=== PATIENT | female | born 1935 | race Caucasian/White ===

== ENCOUNTER → 2017-07-19 10:38 | Outpatient (CLI) | payer MEDICARE, BC, SELFPAY ==
--- NOTE | 2017-07-19 10:48 | MM_ITS ---
MM Dig screening mamm BI w/CAD ORDERING PHYSICIAN : Timothy Alexis PATIENT AGE: 81 years GENDER: Female COMPARISON: 06/12/2013, 05/01/2012, 04/27/2011 INDICATION: Screening no hormones. No new complaints.. Family history. Mother with breast cancer TECHNIQUE: Standard CC and MLO images were obtained. . R2 CAD reviewed. With Additional nipple profile cc & MLO view bilateral FINDINGS: Lower density minimal residual fibroglandular elements bilaterally. Moderate generalized fatty replaced fibroglandular tissue. Stable appearance bilateral. No new areas of concern No malignant appearing mass or malignant appearing microcalcification evident radiographically. . No developing density or architectural distortion benign-appearing nodules are present in the axillary regions. Asymmetric density is noted in the retroareolar areas, stable. IMPRESSION: Stable mammogram No significant change since prior studies , with no evidence of malignancy BI-RADS Category: 2 Benign Finding(s) RECOMMENDED FOLLOW-UP: 1YR - 1 YEAR FOLLOW-UP (A letter has been sent to the patient regarding results of the study.)
== END ==
PROVIDERS: PCP Family Medicine; Visit Provider Family Medicine
DX: Z12.31 Encounter for screening mammogram for malignant neoplasm of breast (principal)
CPT/HCPCS: 77067

== ENCOUNTER → 2018-06-26 15:54 | Outpatient (CLI) | payer MEDICARE, BC, SELFPAY ==
--- NOTE | 2018-06-26 15:58 | MM_ITS ---
MM Dig screening mamm BI w/CAD ORDERING PHYSICIAN : Timothy Alexis PATIENT AGE: 82 years GENDER: Female INDICATION: .: SCREENING mammogram. No new complaints. 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 November 2017 patient January 2018 Family history. Mother with breast cancer age 79 COMPARISON: June 2016, May 2015, May 2014, 2012 TECHNIQUE: Standard CC and MLO images were obtained. R2 CAD reviewed. . In addition Additional Nipple Profile cc and MLO view bilaterally included FINDINGS: . Low-density breast bilaterally with moderate diffuse fatty replacement. Minimal residual fibroglandular elements No dominant nor suspicious mass. No Suspicious calcification additionally seen today.. Benign Vascular calcifications bilaterally again noted as seen before. These likely reflect increased incidence of coronary artery vascular calcification and disease which is no surprising this 82-year-old RIGHT BREAST:No new findings. Follow-up in one year LEFT BREAST:. No findings of significant concernB of palpable area is recommended for return silhouettes are less the lungs are There is a new Port-A-Cath projected over the superior medial left breast well... IMPRESSION: No new areas of concern either breast. Stable mammogram [id number] placement Bilateral follow-up one year Would tend disc changes back and BI-RADS Category: 1 Negative RECOMMENDED FOLLOW-UP: 1YR 1 YEAR FOLLOW-UP (A letter has been sent to the patient regarding results of the study.)
== END ==
PROVIDERS: PCP Family Medicine; Visit Provider Family Medicine
DX: Z12.31 Encounter for screening mammogram for malignant neoplasm of breast (principal)
CPT/HCPCS: 77067

== ENCOUNTER → 2019-07-24 15:30 | Outpatient (CLI) | payer MEDICARE, BC, SELFPAY ==
--- NOTE | 2019-07-24 15:38 | MM_ITS ---
PROCEDURE: MM DIG SCREENING MAMM BI W/CAD CLINICAL INDICATION: SCREENING There is a history of breast cancer patient's mother. COMPARISON: [facility] DIG MAMM-SCREEN ARIAN W/CAD from 07/12/2016 [facility] MM Dig screening mamm BI w/CAD from 07/19/2017 [facility] MM Dig screening mamm BI w/CAD from 06/26/2018 TECHNIQUE: Standard CC and MLO images and 3D Tomosynthesis was obtained. R2 CAD reviewed. FINDINGS: The breasts are composed primarily of fat with minimal scattered fibroglandular densities in each breast. There is faint arterial calcification in each breast. There is a MediPort catheter seen in the upper inner quadrant left breast. There is no suspicious lesion in either breast and no suspicious microcalcifications. Dirk images were reviewed IMPRESSION: Fibrofatty parenchyma with no suspicious lesions seen BI-RAD Category: 2 Benign Finding(s) FOLLOW-UP: 1YR 1 Year Follow-up (A letter has been sent to the patient regarding results of the study.) Dictated by: Dr. Charles Lafleur MD 07/27/2019 18:[address] Charles Lafleur MD in [place] 07/27/2019 18:31
== END ==
PROVIDERS: PCP Family Medicine; Visit Provider Family Medicine
DX: Z12.31 Encounter for screening mammogram for malignant neoplasm of breast (principal)
CPT/HCPCS: 77063; 77067

== ENCOUNTER 2019-09-15 14:00 | Outpatient (RCR) | payer MEDICARE, BC, SELFPAY | END 2019-09-15 14:05 | disposition home or self-care (01) | LOC: PT 14:00 | PROVIDERS: PCP Family Medicine; Visit Provider Thoracic Surgery (Cardiothoracic Vascular Surgery) | DX: I89.0 Lymphedema, not elsewhere classified (principal) | CPT/HCPCS: 97140; 97162; 97760 ==